=== PATIENT | male | born 1950 | race Caucasian/White ===

== ENCOUNTER 2017-10-20 08:12 | Day surgery (SDC) | payer MEDICARE ==
[~2017-10-20] VITALS: Ht 172.7 cm; Wt 75.1 kg
[~2017-10-20 08:12] MED LIST: ASPI81CH; ATOR80; Bisoprolol Fuma10 MG; Omeprazole20 M1
[2017-10-20] MEDS ORDERED: NEBI10 (09:22)
== END 2017-10-20 10:49 | disposition home or self-care (01) ==
LOC: ORSCSDS 08:12
PROVIDERS: Surgery
PROC: 0DBP8ZX Excision of Rectum, Via Natural or Artificial Opening Endoscopic, Diagnostic (ICD-10-PCS; principal; 2017-10-20 09:45)
DX: Z12.11 Encounter for screening for malignant neoplasm of colon (principal); K62.1 Rectal polyp; Z86.010 Personal history of colon polyps; K21.9 Gastro-esophageal reflux disease without esophagitis; I10 Essential (primary) hypertension; R73.9 Hyperglycemia, unspecified; Z87.891 Personal history of nicotine dependence; Z79.82 Long term (current) use of aspirin; Z79.899 Other long term (current) drug therapy
CPT/HCPCS: 88305; J7120

== ENCOUNTER 2023-01-29 07:23 | Day surgery (SDC) | payer OTHER ==
[~2023-01-29 07:23] MED LIST changes: +NEBI10
== END 2023-01-29 23:20 | disposition home or self-care (01) ==
LOC: CT 07:23
DX: I25.10 Atherosclerotic heart disease of native coronary artery without angina pectoris (principal); I25.84 Coronary atherosclerosis due to calcified coronary lesion; I25.82 Chronic total occlusion of coronary artery
CPT/HCPCS: 75574; Q9967

== ENCOUNTER 2023-04-07 06:19 | Day surgery (SDC) | payer OTHER ==
[~2023-04-07] VITALS: Ht 170.2 cm; Wt 74.0 kg
[2023-04-07] MEDS ORDERED: LOSA50 PO (06:40)
[2023-04-07] MEDS ORDERED: Bisoprolol Fuma10 MG PO (06:41)
[2023-04-07] MEDS ORDERED: ISOMON20 (06:42)
[2023-04-07] MEDS ORDERED: CLOP75 PO (06:43)
[2023-04-07] MEDS ORDERED: AMLO10 PO (06:43)
[2023-04-07 08:25] VITALS: BP 118/77
== END 2023-04-07 08:23 | disposition home or self-care (01) ==
LOC: ORSCSDS 06:19
PROVIDERS: Internal Medicine Gastroenterology
PROC: 0DJ08ZZ Inspection of Upper Intestinal Tract, Via Natural or Artificial Opening Endoscopic (ICD-10-PCS; principal; 2023-04-07 07:30)
DX: R93.3 Abnormal findings on diagnostic imaging of other parts of digestive tract (principal); K44.9 Diaphragmatic hernia without obstruction or gangrene; K21.9 Gastro-esophageal reflux disease without esophagitis; E11.9 Type 2 diabetes mellitus without complications; Z95.1 Presence of aortocoronary bypass graft; I25.10 Atherosclerotic heart disease of native coronary artery without angina pectoris; I10 Essential (primary) hypertension; E78.5 Hyperlipidemia, unspecified; Z87.891 Personal history of nicotine dependence; Z79.899 Other long term (current) drug therapy
CPT/HCPCS: J2704; J7120